=== PATIENT | female | born 1995 | race Caucasian/White ===

== ENCOUNTER 2016-11-21 10:04 | Emergency (ER) | payer BC ==
[2016-11-21 11:07] LABS: BASOPHILS 0.1 % (0-2); EOSINOPHILS 0.1 % (0-7); HEMATOCRIT 40.6 % (36.0-48.0); HEMOGLOBIN 13.6 g/dL (12-16); IMMATURE GRANULOCYTES 0.2 % (0-5); LYMPHOCYTES 6.5 % (15-50); MCH 29.2 pg (26.0-34.0); MCHC 33.5 g/dL (31.0-37.0); MCV 87.1 fL (80.0-100.0); MEAN PLATELET VOLUME 9.1 fL (7.4-10.4); MONOCYTES 8.1 % (2-11); PLATELET COUNT 300 10x3/uL (130-400); RBC 4.66 10x6/uL (4.00-5.40); RDW 11.9 % (11.5-14.5); WBC 12.9 10x3/uL (4.8-10.8)
[2016-11-21 11:21] LABS: ALBUMIN 3.5 g/dL (3.4-5.0); ALKALINE PHOSPHATASE 75 U/L (46-116); ALT (SGPT) 19 U/L (10-68); BILIRUBIN - TOTAL 0.57 mg/dL (0.2-1.3); CALC OSMOLALITY 275 mosm/kg (275-300); CARBON DIOXIDE 28.1 mmol/L (21.0-32.0); CHLORIDE - SERUM 102 mmol/L (98-107); CREATININE - SERUM 0.8 mg/dL (0.6-1.3); GLUCOSE 112 mg/dL (74-106); POTASSIUM - SERUM 3.8 mmol/L (3.5-5.1); PROTEIN - SERUM 8.3 g/dL (6.4-8.2); SODIUM 138 mmol/L (136-145); UREA NITROGEN 10 mg/dL (7-18); eGFR NON AFRICAN AMERICAN > 90 mL/min (90-120)
[2016-11-21 11:35] LABS: HCG SERUM NEGATIVE (NEGATIVE)
[2016-11-21 11:37] LABS: MONO NEGATIVE (NEGATIVE)
[2016-11-24 14:14] LABS: EBV - EARLY ANTIGEN AB IGG <9.0 U/mL (0.0-8.9); EBV VIRAL CAPSID AB IGM <36.0 U/mL (0.0-35.9)
== END 2016-11-21 14:11 | disposition home or self-care (01) ==
LOC: D.ER 10:04
PROVIDERS: Physician Assistant
DX: J02.9 Acute pharyngitis, unspecified (principal); R50.9 Fever, unspecified

== ENCOUNTER 2017-03-23 07:10 | Day surgery (SDC) | payer BC ==
[~2017-03-23] VITALS: Ht 177.8 cm; Wt 84.8 kg
[2017-03-23 07:59] LABS: HEMATOCRIT 42.2 % (36.0-48.0); HEMOGLOBIN 14.2 g/dL (12-16); MCH 28.6 pg (26.0-34.0); MCHC 33.6 g/dL (31.0-37.0); MCV 85.1 fL (80.0-100.0); MEAN PLATELET VOLUME 9.2 fL (7.4-10.4); RBC 4.96 10x6/uL (4.00-5.40); RDW 11.6 % (11.5-14.5); WBC 5.4 10x3/uL (4.8-10.8)
[2017-03-23] MEDS ORDERED: CELEXA20 MG PO (08:30)
[2017-03-23 08:35] VITALS: Ht 177.8 cm; Wt 84.8 kg
[2017-03-23 08:52] LABS: HCG URINE NEGATIVE (NEGATIVE)
--- NOTE | 2017-03-23 11:15 | HP ---
PATIENT: SAM LIVINGSTON MEDICAL RECORD: [id number] ACCOUNT: [id number] [facility]ATION:[facility] : 94 ADMISSION DATE: 03/23/17 HISTORY AND PHYSICAL EXAMINATION HISTORY OF PRESENT ILLNESS: Sam is a 21-year-old. She has been having persistent problems with chronic pharyngitis and being admitted for tonsillectomy and adenoidectomy. PAST MEDICAL HISTORY: Otherwise negative. PAST SURGICAL HISTORY: Surgery on her right fingers in 2013. CURRENT MEDICATIONS: Citalopram, phenazopyridine. ALLERGIES: ZOSYN AND VANCOMYCIN. PHYSICAL EXAMINATION: GENERAL: She is healthy-appearing, developmentally normal. FACE: Normal, symmetric, no lesions. EYES: Sclerae and conjunctivae are normal. EARS: Canals and TMs normal. NOSE: No mass, polyps, or drainage. ORAL CAVITY AND OROPHARYNX: Huge 4+ cryptic tonsils. Normal palate. NECK: No masses, no adenopathy. CHEST: Clear. CARDIOVASCULAR: Regular rate and rhythm. No murmur. EXTREMITIES: Normal. IMPRESSION: Chronic pharyngitis and adenotonsillar hypertrophy. PLAN: Tonsillectomy and adenoidectomy. TRANSINT:[id number] Voice Confirmation ID: [id number] DOCUMENT ID: [id number] MARKUS MARTIN MD at 1115 CC: [id number] DICTATION DATE: 03/19/17 1501 CONTROLS DESIGNER: 03/19/[address] [facility] [address] [id number]
--- NOTE | 2017-05-20 13:13 | OP ---
PATIENT NAME: SAM LIVINGSTON MEDICAL RECORD: [id number] :89 LOCATION:[facility] ADMISSION DATE: SURGEON: MARKUS VIRAMONTES MD DATE OF OPERATION: 03/23/2017 PREOPERATIVE DIAGNOSIS: Chronic pharyngitis. POSTOPERATIVE DIAGNOSIS: Chronic pharyngitis. PROCEDURE: Tonsillectomy and adenoidectomy. SURGEON: Markus Viramontes MD ANESTHESIA: General orotracheal. BLOOD LOSS: Less than 5 cc. SPECIMENS: Right and left tonsil. COMPLICATIONS: None. DISPOSITION: Recovery, stable. PROCEDURE NOTE: She was brought to the operating room, placed in the supine position, sedated and intubated by anesthesia. Eyes were taped. The table was turned 90 degrees. Head drape was applied and she was positioned for tonsillectomy. Using a headlight, a Villa-Roberto mouth gag was carefully inserted and elevated on a towel on her chest. The palate was examined and palpated, it was normal. A red rubber catheter was placed through the right side of the nose into the pharynx and grasped with tonsil clamp to retract the soft palate. Using a mirror, the nasopharynx was examined. Suction cautery on a setting of 35 was used to ablate and suction the adenoid pad with no significant bleeding. The choanae and eustachian tube orifices were normal bilaterally. The red rubber catheter was let down and removed. The right tonsil was grasped at the superior pole with a straight Allis clamp. Spatula tip cautery on a setting of 9 was used to dissect out the tonsil along its capsule, preserving the anterior and posterior tonsillar pillars. The left tonsil was removed in the same fashion. Then, both sides of the nose were irrigated with saline. The pharynx was suctioned. Tonsillar fossae were agitated. Suction cautery on a setting of 20 was used to control minimal oozing. With the field clean and dry, the Villa-Roberto mouth gag was let down and removed. She was awakened, extubated, and transported to recovery in good condition. No complications. TRANSINT:[id number] Voice Confirmation ID: [id number] DOCUMENT ID: [id number] MARKUS VIRAMONTES MD at 131 CC: [id number] DICTATION DATE: 03/23/17 1215 WORKERS' COMPENSATION MAGISTRATE: 03/23/17 1617 [facility] 03/23/[id number] [place] [address]
== END 2017-03-23 14:00 | disposition home or self-care (01) ==
LOC: D.OPS 07:10 → D.PAN 09:30 → D.OPS 14:00
PROVIDERS: Anesthesiology; Otolaryngology
DX: J35.01 Chronic tonsillitis (principal); Z88.1 Allergy status to other antibiotic agents; Z88.8 Allergy status to other drugs, medicaments and biological substances; Z79.899 Other long term (current) drug therapy; Z01.812 Encounter for preprocedural laboratory examination